=== PATIENT | female | born 1985 | race Caucasian/White ===

== ENCOUNTER 2017-04-18 10:00 | Day surgery (SDC) | payer MEDICARE, MEDICAID ==
[~2017-04-18 10:00] MED LIST: [UNRECOGNIZED DRUG - OTHER] PO
== END 2017-04-18 16:45 ==
LOC: SRG 10:00 → SHSB 10:01 → ORE 12:01 → PACU 14:14 → SHSB 14:55
PROC: 0CRXXJ1 Replacement of Lower Tooth, Multiple, with Synthetic Substitute, External Approach (ICD-10-PCS; principal; 2017-04-18)
PROC: 0CRWXJ1 Replacement of Upper Tooth, Multiple, with Synthetic Substitute, External Approach (ICD-10-PCS; 2017-04-18)
PROC: 0CDXXZ1 Extraction of Lower Tooth, Multiple, External Approach (ICD-10-PCS; 2017-04-18)
DX: K02.9 Dental caries, unspecified (principal); K01.1 Impacted teeth; Q89.8 Other specified congenital malformations
CPT/HCPCS: J1885